=== PATIENT | male | born 1960 | race Caucasian/White ===

== ENCOUNTER 2020-10-10 15:40 | Emergency (ER) | payer OTHER ==
--- NOTE | 2020-10-10 17:11 | NUR ---
PATIENT LEFT WITHOUT BEING TRIAGED. NO FURTHER CARE PROVIDED FOR PATIENT.
== END 2020-10-10 17:11 | disposition left against medical advice (07) ==
LOC: MED 15:40
DX: Z53.21 Procedure and treatment not carried out due to patient leaving prior to being seen by health care provider (principal)